=== PATIENT | male | born 1980 | race Caucasian/White ===

== ENCOUNTER 2017-07-13 16:58 | Emergency (ER) | payer OTHER ==
[2017-07-13 17:17] VITALS: RESP 20; O2SAT 95
[2017-07-13] MEDS ORDERED: fentaNYL 100 MCG/2 ML INJ ONE (17:58)
[2017-07-13] MEDS ORDERED: fentaNYL 100 MCG/2 ML INJ IVP ONE (18:04)
[2017-07-13 18:10] VITALS: BP 132/100; PULSE 92; TEMP 98.2
[2017-07-13] MEDS ORDERED: IBUPROFEN 600 MG TAB PO ONE (18:10)
--- NOTE | 2017-07-13 18:38 | EDPHY ---
H & P Stated Complaint: ?r shoulder dislocation/breakdancing has had 4 dislocations previously - Personal History Current Tetanus/Diphtheria Vaccine: Yes - Medical/Surgical History Hx Asthma: No Hx Chronic Respiratory Disease: No Hx Diabetes: No Hx Cardiac Disease: No Hx Renal Disease: No Hx Cirrhosis: No Hx Alcoholism: No Hx HIV/AIDS: No Hx Splenectomy or Spleen Trauma: No Other PMH: r shoulder disocation - Social History Smoking Status: Never smoked Time Seen by Provider: 07/13/17 17:30 HPI/ROS: Chief complaint: Right shoulder dislocation History of present illness: This is a 36-year-old male who presents to the emergency department for right shoulder dislocation. He has dislocated the shoulder multiple times. He was break dancing when it dislocated again. He denies direct trauma. He denies other associated signs or symptoms including no open wounds. No abnormal coolness or paresthesias in the arm. No other complaints. (Daniel Reza) - Physical Exam Exam: General Appearance: Alert, nontoxic. Eyes: Pupils equal and round no injection. Respiratory: Chest is non tender, lungs are clear to auscultation. Cardiovascular: Regular rate and rhythm. Radial pulses 2+ bilaterally. Musculoskeletal: Obvious deformity to the right shoulder. Unable to range it. He is moving the rest of the right upper extremity well. Skin: No rashes or lesions. Neurological: Sensation intact throughout the right upper extremity. (Daniel Reaz) Constitutional: Initial Vital Signs Temperature (C) 37.1 C 07/13/17 17:13 Heart Rate 102 H 07/13/17 17:13 Respiratory Rate 20 07/13/17 17:13 Blood Pressure 121/75 H 07/13/17 17:13 O2 Sat (%) 95 07/13/17 17:13 O2 Delivery Mode Room Air Allergies/Adverse Reactions: No Known Allergies Allergy (Verified 07/13/17 17:13) Home Medications: Medication Instructions Recorded NK [No Known Home Meds] 07/13/17 Medical Decision Making - Diagnostics Imaging: I viewed and interpreted images myself - Diagnostics Imaging Results: Imaging Impressions Shoulder X-Ray 07/13/17 17:17 Impression: Anterior dislocation of the right glenohumeral joint. Shoulder X-Ray 07/13/17 18:10 Impression: Reduction of the right glenohumeral dislocation. Fracture fragment inferior to the right glenoid probably represents an osseous Bankart. Procedures: Procedure: Dislocation reduction. The dislocation of the right shoulder was reduced using massage and gentle traction technique without complications. Post reduction the patient's neurovascular exam is normal. Post reduction x-ray demonstrates reduction of the joint to the anatomic position. The procedure was performed by myself. (Daniel Reza) ED Course/Re-evaluation: The patient was evaluated and managed by the physician's anesthesiologist assistant. My cosignature indicates that I reviewed the chart and I agree with the findings and plan of care as documented. I am the secondary supervising physician. ( Lisa Alan) Patient seen under the supervision of my secondary supervising physician Dr. Lisa Alan. Patient presents for a right shoulder injury. His arm is neurovascularly intact. He appears to be dislocated, he has been reduced. He has been placed in a sling. He remains neurovascularly intact. He is referred to Orthopedics for recheck. Return precautions given. (Daniel Reza) Differential Diagnosis: Included but not limited to dislocation, fracture, contusion, sprain or strain ( Daniel Reza) - Data Points Medications Given: Discontinued Medications Fentanyl (Sublimaze) 100 mcg IVP EDNOW ONE Stop: 07/13/17 18:05 Last Admin: 07/13/17 18:05 Dose: 100 mcg Ibuprofen (Motrin) 600 mg PO EDNOW ONE Stop: 07/13/17 18:11 Last Admin: 07/13/17 18:30 Dose: 600 mg Departure - Departure Disposition: Home, Routine, Self-Care Clinical Impression: Shoulder dislocation Qualifiers: Encounter type: initial encounter Laterality: right Qualified Code(s): S43.004A - Unspecified dislocation of right shoulder joint, initial encounter Condition: Good Instructions: Shoulder Dislocation (ED) Additional Instructions: Follow-up with orthopedics for continued evaluation and care Use ibuprofen 600 mg 4 times a day for the next 2-3 days for pain control If symptoms worsen or new symptoms develop return to the emergency room for recheck Referrals: NONE *PRIMARY CARE P,. [Primary Care Provider] - As per Instructions Dequan Garcia MD [Medical Doctor] - As per Instructions
== END 2017-07-13 18:44 | disposition home or self-care (01) ==
PROC: 0RSJXZZ Reposition Right Shoulder Joint, External Approach (ICD-10-PCS; principal; 2017-07-13)
DX: S43.014A Anterior dislocation of right humerus, initial encounter (principal); X58.XXXA Exposure to other specified factors, initial encounter; Y99.8 Other external cause status; Y93.41 Activity, dancing
CPT/HCPCS: 96374; J3010